=== PATIENT | male | born 1975 | race Caucasian/White ===

== ENCOUNTER 2023-09-28 22:42 | Inpatient (IN) ==
[2023-09-28] MEDS ORDERED: VANCOMYCIN CONSULT ACTIVE PRN (23:24)
[2023-09-28 23:54] LABS: Basophils # (auto) 0.04 K/uL (0.00-0.20); Basophils % (auto) 0.8 %; Eosinophils # (auto) 0.12 K/uL (0.00-0.50); Eosinophils % (auto) 2.3 %; Hemoglobin 13.7 g/dl (14.0-18.0); Immature Granulocytes # (auto) 0.04 K/uL (0.01-0.20); Immature Granulocytes % (auto) 0.8 %; Lymphocytes # (auto) 1.61 K/uL (1.20-3.40); Lymphocytes % (auto) 30.8 %; Mean Corpuscular Hemoglobin 28.8 pg (25.0-34.0); Mean Corpuscular Hgb Conc 34.3 g/dL (32.0-36.0); Mean Platelet Volume 9.1 fL (9.4-12.4); Monocytes # (auto) 0.78 K/uL (0.11-0.59); Monocytes % (auto) 14.9 %; Neutrophils # (auto) 2.64 K/uL (1.40-6.50); Neutrophils % (auto) 50.4 %; Platelet Count 201 K/uL (130-400); RDW Coefficient of Variation 12.5 % (11.5-14.5); RDW Standard Deviation 37.5 fL (36.4-46.3); Red Blood Count 4.76 M/uL (4.70-6.10); White Blood Count 5.23 K/ul (4.8-10.8)
[2023-09-28] MEDS: PIPERACILLIN/TAZOBACTAM 4.5 GM/100 ML BAG IV ONE (23:57)
[2023-09-29 00:23] LABS: Albumin Level 4.1 gm/dl (3.4-5.0); Bilirubin Direct 0.1 mg/dl (0-0.2); Bilirubin,Total 0.4 mg/dl (0.2-1.0); C Reactive Protein 2.43 mg/dl (0-0.5); Calcium 8.7 mg/dl (8.6-10.3); Creatinine Clr Calc Pharmacy 179.7 ml/min; Est GFR (African American) 123.3 ml/min; Est GFR (Non-African American) 106.4 ml/min; Magnesium 1.9 mg/dl (1.7-2.4); Potassium 4.1 mmol/L (3.5-5.1); Total Protein 6.6 gm/dl (6.0-8.3); Troponin I High Sensitivity 3.9 pg/ml (0-20)
[2023-09-29 00:24] LABS: Appearance Urine Clear (Clear); Bilirubin Urine Negative (Negative); Blood Urine Negative (Negative); Color Urine Yellow; Glucose Urine UA 3+ (Negative); Ketones Urine Negative (Negative); Leukocyte Esterase Urine Negative (Negative); Nitrite Urine Negative (Negative); Protein Urine Negative (Negative); Specific Gravity Urine 1.045 (1.000-1.030); Urobilinogen Urine Negative (Negative)
[2023-09-29] MEDS: SODIUM CHLORIDE 0.9% 1,000 ML IV SCH ×2 (00:28→01:52)
[2023-09-29] MEDS: VANCOMYCIN HCL 2,750 MG in SODIUM CHLORIDE 0.9% 500 ML IV ONE (01:06)
[2023-09-29] MEDS ORDERED: DEXTROSE 50% 50 ML SYRINGE IV PRN (02:51)
[2023-09-29] MEDS ORDERED: GLUCOSE 40% GEL 15 GM TUBE PO PRN (02:51)
[2023-09-29] MEDS ORDERED: CARBOHYDRATES FOR HYPOGLYCEMIA PO PRN (02:51)
[2023-09-29] MEDS ORDERED: GLUCAGON FOR INJ 1 MG VIAL SQ PRN (02:51)
[2023-09-29] MEDS ORDERED: GLUCOSE 10 TAB/TUBE PO PRN (02:51)
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
[2023-09-29] MEDS ORDERED: KETOROLAC TROMETHAMINE 15 MG/ML VIAL IV PRN (03:48)
[2023-09-29] MEDS ORDERED: ACETAMINOPHEN 325 MG TAB PO PRN (03:48)
[2023-09-29] MEDS ORDERED: oxyCODONE HCL IR 5 MG TAB (IMMEDIATE RELEASE) PO PRN (03:48)
[2023-09-29] MEDS ORDERED: PROMETHAZINE HCL 12.5 MG in SODIUM CHLORIDE 0.9% 50 ML IV PRN (03:48)
[2023-09-29] MEDS: LANTUS PER UNIT CHARGE SQ STA (03:49)
[2023-09-29] MEDS: INSULIN ASPART PER UNIT CHARGE SC SCH ×3 (03:50→09:57)
[2023-09-29] MEDS: SODIUM CHLORIDE 0.9% 1,000 ML IV ONE (03:50)
[2023-09-29] MEDS: Patient's ALLERGY Info needs ENTERED STA (04:09)
--- NOTE | 2023-09-29 05:05 | Emergency Department Note ---
History of Present Illness General Chief complaint: Infection Stated complaint: POSSIBLE INFECTION IN RT FINGER Time Seen by Provider: 09/28/23 23:08 History of Present Illness Maximum Pain Intensity: 2 This is a 48-year-old male presenting to the emergency department for evaluation of infected right second finger. Patient is diabetic and is currently incarcerated. He had been using this finger for fingerstick glucose as he is diabetic. Over the past several days he has developed warmth, pain, and swelling to the finger. The present did try to incise and drain the finger, and may have expressed a small amount of purulent material. This was done roughly 2 days prior to arrival, and nothing seems much worse. Patient has not had distinct fever, but now has redness extending on the back of the right hand into the forearm. His sugar is typically around 150, but he states it has been running over 400. He is able to open and close the hand. He rates his current discomfort a 2/10. Home Medications Medication Instructions Recorded Confirmed Type amlodipine 5 mg tablet 5 mg PO QAM 09/29/23 09/29/23 History hydrochlorothiazide 12.5 mg tablet 12.5 mg PO QAM 09/29/23 09/29/23 History ibuprofen 600 mg tablet 600 mg PO TID PRN Pain 09/29/23 09/29/23 History insulin glargine 100 unit/mL 40 unit subcut BID 09/29/23 09/29/23 History subcutaneous solution insulin regular human 100 unit/mL 1 sliding scale dose subcut 09/29/23 09/29/23 History injection solution (Novolin R USEASDIRECTD Regular U-100 Insulin) sulfamethoxazole 800 1 tab PO BID 09/29/23 09/29/23 History mg-trimethoprim 160 mg tablet Allergies Allergy/AdvReac Type Severity Reaction Status Date / Time No Known Allergies Allergy Verified 09/29/23 04:00 Past Med/Surg History Medical History Diabetes Surgical History No significant past surgical history Social History Smoking Status: Former smoker Tobacco Type: Cigarettes Second Hand Exposure: No; Do You Dip or Chew Tobacco: No; Tobacco Cessation Education Requested by Patient: No Hx Alcohol Use: No Hx Substance Use: Yes Preferred Language: Thai Communication Ability: Effective Restaurant Manager Required: No Beliefs That Will Affect Care: None Current Living Situation: Other Current Living Situation Comment: [facility] Other Information That Helps Us Care for You: No Feels Safe at Home: Yes Safety Concerns: Feels Safe At This Time Assistive Devices: Glasses Review of Systems A total of 10 systems reviewed and were otherwise negative Physical Exam Vital Signs Vital Signs - 24 hr 09/28/23 22:43 09/28/23 22:46 09/28/23 23:16 Temperature 36.5 C Temperature Source Oral Pulse Rate 84 Pulse Rate [Finger] Pulse Rhythm [Finger] Pulse Strength [Finger] Respiratory Rate 18 Respiratory Effort / Characteristics Non-Labored Non-Labored Spontaneous Respiratory Depth Normal Normal Respiratory Pattern Regular Blood Pressure 155/90 H Blood Pressure [Left Arm] Blood Pressure Mean 111 Blood Pressure Mean [Left Arm] Blood Pressure Position Sitting Blood Pressure Position [Left Arm] Pulse Oximetry 97 96 Oxygen Delivery Method Room Air Sepsis Recent Fever Within 48 Hours No Sepsis New/Unexplained Change in Mental Status N/A Sepsis Action Taken by Nursing No Action Required 09/29/23 01:21 09/29/23 04:00 09/29/23 04:58 Temperature Temperature Source Pulse Rate 76 Pulse Rate [Finger] 71 74 Pulse Rhythm [Finger] Regular Pulse Strength [Finger] Normal Respiratory Rate 21 19 18 Respiratory Effort / Characteristics Non-Labored Non-Labored Spontaneous Respiratory Depth Normal Normal Respiratory Pattern Regular Blood Pressure 160/92 H Blood Pressure [Left Arm] 137/82 147/94 H Blood Pressure Mean Blood Pressure Mean [Left Arm] 100 111 Blood Pressure Position Blood Pressure Position [Left Arm] Sitting Pulse Oximetry 98 98 Oxygen Delivery Method Room Air Room Air Room Air Sepsis Recent Fever Within 48 Hours Sepsis New/Unexplained Change in Mental Status Sepsis Action Taken by Nursing VITALS: Vitals are noted on the nurse's note and reviewed by myself. Vital signs stable. GENERAL: Well-developed, well-nourished, white male, who is in no acute distress and resting comfortably. Patient is cooperative with the examination. HEAD: Normocephalic atraumatic. HEART: Regular rate and rhythm without murmurs gallops or rubs. LUNGS: Clear to auscultation bilaterally without wheezes, rales or rhonchi. No retractions or accessory muscle use. MUSCULOSKELETAL: The palmar aspect of the right second finger at the distal phalanx is a discolored white/yellow/black. There seems to be a central area of previous incision and drainage but no active purulence. The more proximal end of the digit is with black. Neurovascular status appears intact distally. There is lymphangitic streaking along the dorsal hand to the dorsal forearm. Patient is able to open and close the hand. NEURO: Patient was alert and oriented to person place and time. CN II through XII grossly intact. Course Administered Medications Amlodipine Besylate (Amlodipine Besylate 5 Mg Tab) 5 mg PO QAM [facility] Stop: 10/29/23 08:59 Last Admin: 09/29/23 08:36 Dose: 5 mg Documented By: ELIDIA Doxycycline Hyclate (Doxycycline Hyclate 100 Mg Cap) 100 mg PO BID [facility] Stop: 10/06/23 08:59 Last Admin: 09/29/23 20:59 Dose: 100 mg Documented By: Admin: 09/29/23 08:36 Dose: 100 mg Documented By: ELIDIA Enoxaparin Sodium (Enoxaparin Inj 40 Mg/0.4 Ml Syr) 40 mg SQ QAM [facility] Stop: 10/29/23 15:34 Last Admin: 09/29/23 16:07 Dose: 40 mg Documented By: ELIDIA Ceftriaxone Sodium (Rocephin) 2,000 mg in 50 mls @ 100 mls/hr IV Q24H [facility] Stop: 10/06/23 15:59 Last Infusion: 09/29/23 16:34 Dose: Infused Documented By: Admin: 09/29/23 16:04 Dose: 100 mls/hr Documented By: ELIDIA Insulin Aspart (Insulin Aspart Per Unit Charge) 0 units SC ACHS [facility] Stop: 10/29/23 08:59 Last Admin: 09/29/23 21:09 Dose: 6 units Documented By: PABLO Co-signed By: DAVID Admin: 09/29/23 17:37 Dose: 8 units Documented By: ELIDIA Co-signed By: BETO Admin: 09/29/23 12:19 Dose: 4 units Documented By: ELIDIA Co-signed By: MARY Admin: 09/29/23 09:57 Dose: 3 units Documented By: ELIDIA Co-signed By: NENITA Insulin Glargine (Lantus Per Unit Charge) 40 units SQ BID [facility] Stop: 10/29/23 20:59 Last Admin: 09/29/23 21:10 Dose: 40 units Documented By: PABLO Co-signed By: AMS Discontinued Medications Vancomycin HCl 2,750 mg/ (Sodium Chloride) 555 mls @ 200 mls/hr IV NOW ONE Stop: 09/29/23 02:10 Last Infusion: 09/29/23 03:53 Dose: Infused Documented By: Admin: 09/29/23 01:06 Dose: 200 mls/hr Documented By: MILTON Piperacillin Sod/Tazobactam Sod (Zosyn) 4.5 gm in 100 mls @ 200 mls/hr IV NOW ONE Stop: 09/28/23 23:53 Last Infusion: 09/29/23 01:00 Dose: Infused Documented By: Admin: 09/28/23 23:57 Dose: 200 mls/hr Documented By: MILTON Sodium Chloride (Nss) 1,000 mls @ 999 mls/hr IV .Q1H1M [facility]A Stop: 09/29/23 02:08 Last Infusion: 09/29/23 01:51 Dose: Infused Documented By: Admin: 09/29/23 00:30 Dose: 999 mls/hr Documented By: Infusion: 09/29/23 00:30 Dose: Infused Documented By: Admin: 09/29/23 00:28 Dose: 999 mls/hr Documented By: MILTON Sodium Chloride (Nss) 1,000 mls @ 999 mls/hr IV .Q1H1M SORAYA Stop: 09/29/23 02:45 Last Infusion: 09/29/23 02:53 Dose: Infused Documented By: Admin: 09/29/23 01:52 Dose: 999 mls/hr Documented By: MILTON Sodium Chloride (Nss) 1,000 mls @ 75 mls/hr IV .[id number] ONE Stop: 09/29/23 16:22 Last Infusion: 09/29/23 17:58 Dose: Infused Documented By: Admin: 09/29/23 03:50 Dose: 75 mls/hr Documented By: MARCELINO Piperacillin Sod/Tazobactam (Sod 4.5 gm/ Dextrose) 100 mls @ 200 mls/hr IV NOW ONE; Protocol Stop: 09/29/23 10:29 Last Infusion: 09/29/23 10:27 Dose: Infused Documented By: Admin: 09/29/23 09:55 Dose: 200 mls/hr Documented By: ELIDIA Insulin Aspart (Insulin Aspart Per Unit Charge) 0 units SC Q6 [facility] Stop: 10/29/23 02:54 Last Admin: 09/29/23 03:50 Dose: 7 units Documented By: MARCELINO Co-signed By: TOREY Insulin Aspart (Insulin Aspart Per Unit Charge) 0 units SC Q6 [facility]A Stop: 10/29/23 05:59 Last Admin: 09/29/23 05:50 Dose: 4 units Documented By: DAVID Co-signed By: PABLO Insulin Glargine (Lantus Per Unit Charge) 25 units SQ NOW STA Stop: 09/29/23 03:00 Last Admin: 09/29/23 03:49 Dose: 25 units Documented By: MARCELINO Co-signed By: TOREY Miscellaneous Information (Patient's Allergy Info Needs Entered) 1 each N/A NOW Stop: 09/29/23 03:58 Last Admin: 09/29/23 04:09 Dose: Not Given Documented By: TOREY Medical Decision Making Differential Diagnosis Differential diagnosis includes: Etiologies such as cellulitis, abscess, osteomyelitis, MRSA infection, DVT, necrotizing fasciitis, dermatitis, drug eruption, as well as others were entertained Laboratory Data 09/29/23 07:09 09/29/23 07:09 Lab Results 09/28/23 09/28/23 09/29/23 Range/Units 23:05 23:41 00:00 WBC 5.23 (4.8-10.8) K/ul RBC 4.76 (4.70-6.10) M/uL Hgb 13.7 L (14.0-18.0) g/dl Hct 40.0 L (42.0-52.0) % MCV 84.0 (80.0-100.0) fL MCH 28.8 (25.0-34.0) pg MCHC 34.3 (32.0-36.0) g/dL RDW Std Deviation 37.5 (36.4-46.3) fL RDW Coeff of Janett 12.5 (11.5-14.5) % Plt Count 201 (130-400) K/uL MPV 9.1 L (9.4-12.4) fL Immature Gran % (Auto) 0.8 % Neut % (Auto) 50.4 % Lymph % (Auto) 30.8 % [place] % (Auto) 14.9 % Eos % (Auto) 2.3 % Baso % (Auto) 0.8 % Neut # (Auto) 2.64 (1.40-6.50) K/uL Lymph # (Auto) 1.61 (1.20-3.40) K/uL [place] # (Auto) 0.78 H (0.11-0.59) K/uL Eos # (Auto) 0.12 (0.00-0.50) K/uL Baso # (Auto) 0.04 (0.00-0.20) K/uL Immature Gran # (Auto) 0.04 (0.01-0.20) K/uL ESR 21 H (0-15) mm/hr Sodium 134 L (136-145) mmol/L Potassium 4.1 (3.5-5.1) mmol/L Chloride 102 (98-107) mmol/L Carbon Dioxide 24 (21-32) mmol/L Anion Gap 8 (3-11) BUN 12 (6-23) mg/dl Creatinine 0.80 (0.6-1.4) mg/dl Est Cr Clr Drug Dosing 179.7 ml/min Est GFR ( Amer) 123.3 ml/min Est GFR (Non-Af Amer) 106.4 ml/min BUN/Creatinine Ratio 15.0 (10-20) Glucose 412 H* (70-99(Fasting)) mg/dl POC Glucose (70-99) mg/dl Estimat Average Glucose 237 mg/dl Hemoglobin A1c 9.9 H (4.5-5.6) % Lactate 2.1 H* (0.4-2.0) mmol/L Calcium 8.7 (8.6-10.3) mg/dl Magnesium 1.9 (1.7-2.4) mg/dl Total Bilirubin 0.4 (0.2-1.0) mg/dl Direct Bilirubin 0.1 (0-0.2) mg/dl AST 29 (13-39) U/L ALT 51 (7-52) U/L Alkaline Phosphatase 88 (34-104) U/L Troponin I High Sens 3.9 (0-20) pg/ml C-Reactive Protein 2.43 H (0-0.5) mg/dl Total Protein 6.6 (6.0-8.3) gm/dl Albumin 4.1 (3.4-5.0) gm/dl Procalcitonin 0.13 (0-0.5) ng/ml Urine Color Yellow Urine Appearance Clear (Clear) Urine pH 6.0 (4.5-7.5) Ur Specific [place] 1.045 H (1.000-1.030) Urine Protein Negative (Negative) Urine Glucose (UA) 3+ H (Negative) Urine Ketones Negative (Negative) Urine Blood Negative (Negative) Urine Nitrite Negative (Negative) Urine Bilirubin Negative (Negative) Urine Urobilinogen Negative (Negative) Ur Leukocyte Esterase Negative (Negative) 09/29/23 09/29/23 Range/Units 01:47 03:38 WBC (4.8-10.8) K/ul RBC (4.70-6.10) M/uL Hgb (14.0-18.0) g/dl Hct (42.0-52.0) % MCV (80.0-100.0) fL MCH (25.0-34.0) pg MCHC (32.0-36.0) g/dL RDW Std Deviation (36.4-46.3) fL RDW Coeff of Janett (11.5-14.5) % Plt Count (130-400) K/uL MPV (9.4-12.4) fL Immature Gran % (Auto) % Neut % (Auto) % Lymph % (Auto) % [place] % (Auto) % Eos % (Auto) % Baso % (Auto) % Neut # (Auto) (1.40-6.50) K/uL Lymph # (Auto) (1.20-3.40) K/uL [place] # (Auto) (0.11-0.59) K/uL Eos # (Auto) (0.00-0.50) K/uL Baso # (Auto) (0.00-0.20) K/uL Immature Gran # (Auto) (0.01-0.20) K/uL ESR (0-15) mm/hr Sodium (136-145) mmol/L Potassium (3.5-5.1) mmol/L Chloride (98-107) mmol/L Carbon Dioxide (21-32) mmol/L Anion Gap (3-11) BUN (6-23) mg/dl Creatinine (0.6-1.4) mg/dl Est Cr Clr Drug Dosing ml/min Est GFR ( Amer) ml/min Est GFR (Non-Af Amer) ml/min BUN/Creatinine Ratio (10-20) Glucose (70-99(Fasting)) mg/dl POC Glucose 299 H (70-99) mg/dl Estimat Average Glucose mg/dl Hemoglobin A1c (4.5-5.6) % Lactate 1.6 (0.4-2.0) mmol/L Calcium (8.6-10.3) mg/dl Magnesium (1.7-2.4) mg/dl Total Bilirubin (0.2-1.0) mg/dl Direct Bilirubin (0-0.2) mg/dl AST (13-39) U/L ALT (7-52) U/L Alkaline Phosphatase (34-104) U/L Troponin I High Sens (0-20) pg/ml C-Reactive Protein (0-0.5) mg/dl Total Protein (6.0-8.3) gm/dl Albumin (3.4-5.0) gm/dl Procalcitonin (0-0.5) ng/ml Urine Color Urine Appearance (Clear) Urine pH (4.5-7.5) Ur Specific [place] (1.000-1.030) Urine Protein (Negative) Urine Glucose (UA) (Negative) Urine Ketones (Negative) Urine Blood (Negative) Urine Nitrite (Negative) Urine Bilirubin (Negative) Urine Urobilinogen (Negative) Ur Leukocyte Esterase (Negative) Imaging Data Radiologist's Impression: Finger X-Ray 09/28/23 23:13 RIGHT SECOND FINGER 3 VIEWS CLINICAL HISTORY: Second digit infection. FINDINGS: 3 views of the right second finger are obtained. No prior studies are available for comparison at the time of dictation. The skeletal structures are well-mineralized. There is no radiographic evidence of fracture or dislocation. The joint spaces are maintained. Soft tissue edema is noted in the second digit. No soft tissue gas or radiodense foreign body is identified. IMPRESSION: Soft tissue swelling with no acute bony abnormality identified. Electronically signed by: Kevin Jc M.D. 09/29/2023 6:54 AM Chest X-Ray 09/28/23 23:16 SINGLE VIEW CHEST CLINICAL HISTORY: Sepsis. FINDINGS: 2 AP, portable, upright chest radiographs are obtained. No prior studies are available for comparison at the time of dictation. The cardiomediastinal silhouette is unremarkable. The lungs and pleural spaces are clear. No pneumothorax is seen. The bony thorax is grossly intact. IMPRESSION: No active disease in the chest. ACT 112: Negative or not required by law. Electronically signed by: Kevin Jc M.D. 09/29/2023 7:17 AM MDM Narrative Physical exam and history were performed. Nursing notes, EMR, and Medication List were personally reviewed. No social concerns were identified as barriers to patients care. Patient appears to have right second finger infection bringing him to the ER. He is a diabetic and the finger does appear infected with clinical evidence of possible sepsis. IV access was established and labs were obtained. Blood cultures and lactic acid were performed. X-ray of the finger was ordered. Patient's blood work is as above and was reviewed. He does not have a significantly elevated white blood cell count or gross anemia. Transaminases are not diagnostic. Initial lactic is elevated at 2.1. Initial glucose is over 400. Patient was given vancomycin and Zosyn empirically, as well as a sepsis fluid bolus. Inflammatory markers are also elevated. X-ray does not appear to show osteomyelitis or retained foreign body. Overall the patient does not appear well for discharge. Escalation of care is necessary. The case was discussed with the on-call hospitalist team who agreed to evaluate the patient here in the ER. Please see their dictation for further patient course, plan, disposition. The chart was completed utilizing [employer] Speech Voice Recognition Software. Grammatical errors, random word insertions, pronoun errors, and incomplete sentences are an occasional consequence of this system due to software limitations, ambient noise, and hardware issues. Any formal questions or concerns about the content, text, or information contained within the body of this dictation should be directly addressed to the provider for clarification. . Impression & Plan Cellulitis of finger of right hand, Sepsis Discharge Plan Visit Data Chief Complaint: Infection Stated Complaint: POSSIBLE INFECTION IN RT FINGER ED Provider: Carin Jacob ED Midlevel Provider: Jorge Manuel Discharge Problem: Cellulitis of finger of right hand, Sepsis Patient Disposition: Admitted As Inpatient Discharge Instructions Interventions: ED Discharge Assessment Last Done: 09/29/23 04:58
--- NOTE | 2023-09-29 06:56 | XRay Report ---
RIGHT SECOND FINGER 3 VIEWS CLINICAL HISTORY: Second digit infection. FINDINGS: 3 views of the right second finger are obtained. No prior studies are available for compari son at the time of dictation. The skeletal structures are well-mineralized. There is no radiographic evidence of fracture or dislocation. The joint spaces are maintained. Soft tissue edema is noted in t he second digit. No soft tissue gas or radiodense foreign body is identified. IMPRESSION: Soft tissue swelling with no acute bony abnormality identified. Electronically signed by: Kevin Jc M.D. 09/29/2023 6:54 AM
[2023-09-29 07:11] LABS: Estimated Average Glucose 237 mg/dl; Hemoglobin A1C 9.9 % (4.5-5.6)
--- NOTE | 2023-09-29 07:19 | XRay Report ---
SINGLE VIEW CHEST CLINICAL HISTORY: Sepsis. FINDINGS: 2 AP, portable, upright chest radiographs are obtained. No prior studies are available for comparison at the time of dictation. The cardiomediastinal silhouette is unremarkable. The lungs and pleural spaces are clear. No pneumothorax is seen. The bony thorax is grossly intact. IMPRESSION: No active disease in the chest. ACT 112: Negative or not required by law. Electronically signed by: Kevin Jc M.D. 09/29/2023 7:17 AM
[2023-09-29 07:37] LABS: Basophils # (auto) 0.04 K/uL (0.00-0.20); Basophils % (auto) 0.9 %; Eosinophils # (auto) 0.15 K/uL (0.00-0.50); Eosinophils % (auto) 3.5 %; Hematocrit (blood only) 37.1 % (42.0-52.0); Hemoglobin 12.5 g/dl (14.0-18.0); Immature Granulocytes # (auto) 0.03 K/uL (0.01-0.20); Immature Granulocytes % (auto) 0.7 %; Lymphocytes # (auto) 1.48 K/uL (1.20-3.40); Lymphocytes % (auto) 34.9 %; Mean Corpuscular Hgb Conc 33.7 g/dL (32.0-36.0); Mean Corpuscular Volume 86.1 fL (80.0-100.0); Monocytes # (auto) 0.76 K/uL (0.11-0.59); Monocytes % (auto) 17.9 %; Neutrophils # (auto) 1.78 K/uL (1.40-6.50); Neutrophils % (auto) 42.1 %; Platelet Count 167 K/uL (130-400); RDW Coefficient of Variation 12.5 % (11.5-14.5); RDW Standard Deviation 39.6 fL (36.4-46.3); Red Blood Count 4.31 M/uL (4.70-6.10); White Blood Count 4.24 K/ul (4.8-10.8)
--- NOTE | 2023-09-29 07:38 | Orthopedic Consultation ---
Date of Service September 29, 2023 Assessment & Plan (1) Cellulitis of finger of right hand: Fortunately, I do not see any surgical indications. Especially with an uncontrolled diabetic I think that opening up the finger would only lead to delayed healing. I do not see any signs of flexor tenosynovitis. This should be treated well with IV antibiotics. I will continue to follow him closely to ensure his symptoms do not worsen. History of Present Illness Reason for Consultation: Infection right index finger. Requesting Physician: . Attending Physician: Slick Shelton MD Nelson is a 48-year-old male who is currently incarcerated. He is an uncontrolled diabetic and does fingersticks to check his blood glucose levels. He began noticing increased redness around the tip of his right index finger. He then tried to do a small I&D of the lesion himself and was able to get out of the minimal amount of pus. Unfortunate the skin edges are starting to necrosis. He is also noticed some tracking of the infection. He came to the emergency room. He was admitted to the hospitalist service and started on IV antibiotics. Orthopedics was consulted to help evaluate and treat.. Allergies Allergy/AdvReac Type Severity Reaction Status Date / Time No Known Allergies Allergy Verified 09/29/23 04:00 Home Medications Medication Instructions Recorded Confirmed Type amlodipine 5 mg tablet 5 mg PO QAM 09/29/23 09/29/23 History hydrochlorothiazide 12.5 mg tablet 12.5 mg PO QAM 09/29/23 09/29/23 History ibuprofen 600 mg tablet 600 mg PO TID PRN Pain 09/29/23 09/29/23 History insulin glargine 100 unit/mL 40 unit subcut BID 09/29/23 09/29/23 History subcutaneous solution insulin regular human 100 unit/mL 1 sliding scale dose subcut 09/29/23 09/29/23 History injection solution (Novolin R USEASDIRECTD Regular U-100 Insulin) sulfamethoxazole 800 1 tab PO BID 09/29/23 09/29/23 History mg-trimethoprim 160 mg tablet Past Med/Surg History Medical History Diabetes Surgical History No significant past surgical history Social History Smoking Status: Former smoker Tobacco Type: Cigarettes Second Hand Exposure: No; Do You Dip or Chew Tobacco: No; Tobacco Cessation Education Requested by Patient: No Hx Alcohol Use: No Hx Substance Use: Yes Preferred Language: Romanian Communication Ability: Effective Drier Attendant Required: No Beliefs That Will Affect Care: None Current Living Situation: Other Current Living Situation Comment: [facility] Other Information That Helps Us Care for You: No Feels Safe at Home: Yes Safety Concerns: Feels Safe At This Time Assistive Devices: Glasses Review of Systems All systems reviewed & are unremarkable except as noted in HPI & below. Physical Exam On physical examination of the right index finger, he does have some necrosis on the volar aspect of the tip of the right index finger. There is a little bit of redness in the area. He can flex his finger about 80%. The redness is starting to track up towards his PIP joint. He has no pain along the flexor tendon sheath.. Constitutional WD/WN, vitals as above Eyes PERRL, conjunctivae normal, anicteric sclerae ENMT external ear and nose normal, oropharynx normal Neck trachea midline, no thyromegaly Respiratory normal respiratory effort Cardiovascular RRR, no murmur, no edema Gastrointestinal (Abdomen) normal bowel sounds, soft, nontender, no hepatosplenomegaly Psychiatric A+Ox3, euthymic affect Results & Data Results & Data Laboratory Results . Diagnostic Findings X-rays of the right hand were reviewed. I do not see any evidence of involvement of the bone. The x-rays are negative.. PG Care Time/CCT Total # of Minutes Spent Total Time Spent with Patient: Total time spent is greater than 50% in coordination of care (as documented) at patient's floor/unit and/or counseling patient: Coding Level of Care Code 81152 IN/OBS CONSULT LVL 4,60M Diagnoses Cellulitis of finger of right hand L03.011
[2023-09-29 07:54] LABS: BUN Creatinine Ratio 14.5 (10-20); Creatinine Clr Calc Pharmacy 231.9 ml/min; Est GFR (African American) 136.9 ml/min; Est GFR (Non-African American) 118.1 ml/min; Potassium 3.7 mmol/L (3.5-5.1)
[2023-09-29] MEDS: DOXYCYCLINE HYCLATE 100 MG CAP PO SCH (08:36)
[2023-09-29] MEDS: amLODIPine BESYLATE 5 MG TAB PO SCH (08:36)
[2023-09-29] MEDS ORDERED: Nursing to Pharmacy Communication SCH (08:45)
[2023-09-29] MEDS ORDERED: DOXYCYCLINE HYCLATE 100 MG CAP PO SCH (09:00)
[2023-09-29] MEDS: PIPERACILLIN/TAZOBACTAM 4.5 GM in DEXTROSE 5% MINI-B 100 ML IV ONE (09:55)
--- NOTE | 2023-09-29 15:23 | Hospitalist Progress Note ---
Date of Service September 29, 2023 Assessment & Plan (1) Cellulitis of finger of right hand: Plan: Cellulitis of finger of right hand --Finger X ray:Soft tissue swelling with no acute bony abnormality identified. -- Blood culture pending --Wound culture pending -- Continue Rocephin, doxycycline --No surgical intervention per orthopedic Appreciate orthopedics Received IV fluids Continue wound care DM II Poorly controlled HbA1c 9.9 Continue insulin while hospitalized Monitor BGs Hypertension Continue amlodipine Resume HCTZ as able Past tobacco abuse. Morbid obesity--BMI 48 DVT Px: Lovenox SQ CODE STATUS Full code Admission and Anticipated Discharge Date Admission Date: September 29, 2023 Subjective Patient is seen and examined at bedside Right finger/hand pain, erythema is improving Denies any chest pain, dyspnea, dizziness, nausea, vomiting, abdominal pain No other complaints Review of Systems Review of Systems: All systems reviewed & are unremarkable except as noted in Subjective Physical Exam Physical Exam: Physical Exam: Vitals signs as noted above General Appearance:Morbidly Obese, no apparent distress Head: normocephalic, Atraumatic Eyes: normal inspection, EOMI Neck: supple, Trachea midline Respiratory/Chest: Normal breath sounds, CTA, No accessory muscle use Cardiovascular: S1, S2, No murmur Abdomen/GI:Soft, Non tender, Bowel sounds present, +Abd Wall hernia Extremities/Musculoskeletal:normal inspection, LE edema, R index finger in dressing Neurologic/Psych:AAOX3, grossly no focal neurological deficits Skin: normal color, warm Results & Data Results & Data Vital Signs (Past 12 Hours) Vital Signs Temp Pulse Pulse Resp BP BP Pulse Ox 09/29/23 07:08 36.5 C 76 18 152/93 H 09/29/23 06:04 36.4 C L 85 12 127/85 96 09/29/23 05:35 36.4 C L 85 14 127/85 96 09/29/23 04:58 76 18 160/92 H 09/29/23 04:00 74 19 147/94 H 98 O2 Del Method 09/29/23 07:08 09/29/23 06:04 Room Air 09/29/23 05:35 Room Air 09/29/23 04:58 Room Air 09/29/23 04:00 Room Air Laboratory Results Short CBC 09/28/23 09/29/23 Range/Units 23:41 07:09 WBC 5.23 4.24 L (4.8-10.8) K/ul Hgb 13.7 L 12.5 L (14.0-18.0) g/dl Hct 40.0 L 37.1 L (42.0-52.0) % Plt Count 201 167 (130-400) K/uL BMP 09/28/23 09/29/23 23:05 07:09 Sodium 134 L 139 Potassium 4.1 3.7 Chloride 102 109 H Carbon Dioxide 24 26 BUN 12 9 Creatinine 0.80 0.62 Glucose 412 H* 181 H Calcium 8.7 8.0 L Liver Function 09/28/23 Range/Units 23:05 Total Bilirubin 0.4 (0.2-1.0) mg/dl Direct Bilirubin 0.1 (0-0.2) mg/dl AST 29 (13-39) U/L ALT 51 (7-52) U/L Alkaline Phosphatase 88 (34-104) U/L Albumin 4.1 (3.4-5.0) gm/dl Urine 09/29/23 Range/Units 00:00 Urine Color Yellow Urine Appearance Clear (Clear) Urine pH 6.0 (4.5-7.5) Ur Specific [place] 1.045 H (1.000-1.030) Urine Protein Negative (Negative) Urine Glucose (UA) 3+ H (Negative)
[2023-09-29] MEDS: cefTRIAXone SODIUM 2,000 MG/50 ML BAG IV SCH (16:04)
[2023-09-29] MEDS: ENOXAPARIN INJ 40 MG/0.4 ML SYR SQ SCH (16:07)
[2023-09-29] MEDS ORDERED: LANTUS PER UNIT CHARGE SQ SCH (21:00)
[2023-09-29] MEDS: LANTUS PER UNIT CHARGE SQ SCH (21:10)
[2023-09-30 06:33] LABS: Hematocrit (blood only) 38.9 % (42.0-52.0); Hemoglobin 13.5 g/dl (14.0-18.0); Mean Corpuscular Hemoglobin 29.3 pg (25.0-34.0); Mean Corpuscular Hgb Conc 34.7 g/dL (32.0-36.0); Mean Corpuscular Volume 84.6 fL (80.0-100.0); Mean Platelet Volume 9.3 fL (9.4-12.4); Platelet Count 191 K/uL (130-400); RDW Coefficient of Variation 12.6 % (11.5-14.5); RDW Standard Deviation 38.2 fL (36.4-46.3); White Blood Count 4.99 K/ul (4.8-10.8)
[2023-09-30 06:35] LABS: BUN Creatinine Ratio 13.8 (10-20); Calcium 8.5 mg/dl (8.6-10.3); Creatinine Clr Calc Pharmacy 221.2 ml/min; Est GFR (African American) 134.3 ml/min; Est GFR (Non-African American) 115.9 ml/min; Magnesium 1.7 mg/dl (1.7-2.4); Potassium 3.9 mmol/L (3.5-5.1)
[2023-09-30] MEDS ORDERED: ENOXAPARIN INJ 40 MG/0.4 ML SYR SQ SCH (09:00)
--- NOTE | 2023-09-30 17:31 | Hospitalist Progress Note ---
Date of Service September 30, 2023 Assessment & Plan (1) Cellulitis of finger of right hand: Plan: Cellulitis of finger of right hand --Finger X ray:Soft tissue swelling with no acute bony abnormality identified. -- Blood culture negative to date --Wound culture growing staph species -- Continue Rocephin, doxycycline --No surgical intervention per orthopedic Appreciate orthopedics Received IV fluids Continue wound care Likely transition to oral antibiotics once cultures finalized DM II Poorly controlled HbA1c 9.9 Continue insulin while hospitalized Monitor BGs Hypertension Continue amlodipine Resume HCTZ tmw Past tobacco abuse. Morbid obesity--BMI 48 DVT Px: Lovenox SQ CODE STATUS Full code Admission and Anticipated Discharge Date Admission Date: September 29, 2023 Subjective Patient is seen and examined at bedside No new complaints Still has some pain of right index finger Denies any chest pain, dyspnea, dizziness, nausea, vomiting, abdominal pain Wound culture growing staph species Review of Systems Review of Systems: All systems reviewed & are unremarkable except as noted in Subjective Physical Exam Physical Exam: Physical Exam: Vitals signs as noted above General Appearance:Morbidly Obese, no apparent distress Head: normocephalic, Atraumatic Eyes: normal inspection, EOMI Neck: supple, Trachea midline Respiratory/Chest: Normal breath sounds, CTA, No accessory muscle use Cardiovascular: S1, S2, No murmur Abdomen/GI:Soft, Non tender, Bowel sounds present, +Abd Wall hernia Extremities/Musculoskeletal:normal inspection, LE edema, R index finger in dressing Neurologic/Psych:AAOX3, grossly no focal neurological deficits Skin: normal color, warm Results & Data Results & Data Vital Signs (Past 12 Hours) Vital Signs Temp Pulse Resp BP Pulse Ox O2 Del Method 09/30/23 16:49 36.6 C 80 18 138/77 95 Room Air 09/30/23 07:57 36.6 C 68 18 129/81 Laboratory Results Short CBC 09/30/23 Range/Units 05:34 WBC 4.99 (4.8-10.8) K/ul Hgb 13.5 L (14.0-18.0) g/dl Hct 38.9 L (42.0-52.0) % Plt Count 191 (130-400) K/uL BMP 09/30/23 05:34 Sodium 138 Potassium 3.9 Chloride 106 Carbon Dioxide 27 BUN 9 Creatinine 0.65 Glucose 184 H Calcium 8.5 L
--- NOTE | 2023-09-30 22:13 | Electrocardiogram Report ---
Test Reason : Blood Pressure : / mmHG Vent. Rate : 076 BPM Atrial Rate : 076 BPM P-R Int : 172 ms QRS Dur : 086 ms QT Int : 406 ms P-R-T Axes : 087 076 052 degrees QTc Int : 456 ms Normal sinus rhythm Normal ECG No previous ECGs available Confirmed by Miinsterio Onofre ([id number]) on 09/30/2023 10:13:15 PM Referred By: Sri BEGUM Confirmed By:Ministerio Onofre
--- NOTE | 2023-10-01 06:38 | Orthopedic Progress Note ---
Date of Service October 01, 2023 Assessment & Plan (1) Cellulitis of finger of right hand: Overall he seems to be improving on the IV antibiotics. I do not see any surgical indications at this time. There is no need to follow-up with orthopedics as an outpatient. This can likely be managed by the primary care te am. Orthopedics will sign off. If you have any further questions please feel free to [place] text me or contact me personally on my cell phone [phone]. Subjective Nelson was seen and examined at bedside this morning. Overall he seems to be doing a little bit better. The finger seems to be improving. It is certainly not getting any worse. He has minimal pain and no new complaints.. Review of Systems All systems reviewed & are unremarkable except as noted in HPI & below. Physical Exam On physical examination the right finger, he has about 50% of normal flexion. He has no pain along the flexor tendon sheath. He does have a little bit of skin necrosis on the volar aspect of his finger. There is no streaking cellulitis.. Results & Data Results & Data Laboratory Results . Diagnostic Findings . PG Care Time/CCT Total # of Minutes Spent Total Time Spent with Patient: Total time spent is greater than 50% in coordination of care (as documented) at patient's floor/unit and/or counseling patient: Coding Level of Care Code 99682 SUB INP/OBS CARE 2MIN Diagnoses Cellulitis of finger of right hand L03.011
[2023-10-01 07:22] LABS: Hematocrit (blood only) 42.7 % (42.0-52.0); Hemoglobin 14.4 g/dl (14.0-18.0); Mean Corpuscular Hemoglobin 28.7 pg (25.0-34.0); Mean Corpuscular Hgb Conc 33.7 g/dL (32.0-36.0); Mean Corpuscular Volume 85.2 fL (80.0-100.0); Mean Platelet Volume 8.8 fL (9.4-12.4); Platelet Count 219 K/uL (130-400); RDW Coefficient of Variation 12.5 % (11.5-14.5); RDW Standard Deviation 38.4 fL (36.4-46.3); Red Blood Count 5.01 M/uL (4.70-6.10)
[2023-10-01 07:26] LABS: BUN Creatinine Ratio 14.3 (10-20); Calcium 8.7 mg/dl (8.6-10.3); Creatinine Clr Calc Pharmacy 205.4 ml/min; Est GFR (African American) 130.3 ml/min; Est GFR (Non-African American) 112.4 ml/min; Potassium 3.9 mmol/L (3.5-5.1)
--- NOTE | 2023-10-01 12:51 | Hospitalist Progress Note ---
Date of Service October 01, 2023 Assessment & Plan (1) Cellulitis of finger of right hand: Plan: Cellulitis of finger of right hand --Finger X ray:Soft tissue swelling with no acute bony abnormality identified. -- Blood culture negative to date --Wound culture growing staph species---discussed with lab, likely Staph aureus -- Continue Rocephin, doxycycline --No surgical intervention per orthopedic Appreciate orthopedics Received IV fluids Continue wound care Clinically improved Plan to discharge on oral antibiotics to complete the course DM II Poorly controlled HbA1c 9.9 Continue insulin while hospitalized Monitor BGs Hypertension Continue amlodipine Resume HCTZ Past tobacco abuse. Morbid obesity--BMI 48 DVT Px: Lovenox SQ CODE STATUS Full code Disposition [facility] Admission and Anticipated Discharge Date Admission Date: September 29, 2023 Subjective Patient is seen and examined at bedside Pain of right index finger better Denies any chest pain, dyspnea, dizziness, nausea, vomiting, abdominal pain Review of Systems Review of Systems: All systems reviewed & are unremarkable except as noted in Subjective Physical Exam Physical Exam: Physical Exam: Vitals signs as noted above General Appearance:Morbidly Obese, no apparent distress Head: normocephalic, Atraumatic Eyes: normal inspection, EOMI Neck: supple, Trachea midline Respiratory/Chest: Normal breath sounds, CTA, No accessory muscle use Cardiovascular: S1, S2, No murmur Abdomen/GI:Soft, Non tender, Bowel sounds present, +Abd Wall hernia Extremities/Musculoskeletal:normal inspection, LE edema, R index finger erythema improved Neurologic/Psych:AAOX3, grossly no focal neurological deficits Skin: normal color, warm Results & Data Results & Data Vital Signs (Past 12 Hours) Vital Signs Temp Pulse Resp BP Pulse Ox O2 Del Method 10/01/23 06:59 36.4 C L 67 16 134/87 96 Room Air Laboratory Results Short CBC 10/01/23 Range/Units 06:27 WBC 5.90 (4.8-10.8) K/ul Hgb 14.4 (14.0-18.0) g/dl Hct 42.7 (42.0-52.0) % Plt Count 219 (130-400) K/uL BMP 10/01/23 06:27 Sodium 138 Potassium 3.9 Chloride 102 Carbon Dioxide 31 BUN 10 Creatinine 0.70 Glucose 193 H Calcium 8.7
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
== END 2023-10-01 14:24 | DRG 603 ==
LOC: ED 22:42 → 3N 09-29 03:47